=== PATIENT | female | born 1985 | race Two or more races ===

== ENCOUNTER 2025-03-05 20:17 | Emergency (ER) | payer OTHER ==
[~2025-03-05] VITALS: Ht 165.1 cm; Wt 80.9 kg
[2025-03-05 20:40] VITALS: BP 120/78; PULSE 88; RESP 18; TEMP 97.9; O2SAT 98
== END 2025-03-05 21:52 | disposition left against medical advice (07) ==
LOC: ER 20:17
DX: M54.50 Low back pain, unspecified (principal); Z53.21 Procedure and treatment not carried out due to patient leaving prior to being seen by health care provider; V89.2XXA Person injured in unspecified motor-vehicle accident, traffic, initial encounter; Y93.89 Activity, other specified; Y92.89 Other specified places as the place of occurrence of the external cause; Y99.8 Other external cause status